=== PATIENT | female | born 1970 | race Caucasian/White ===

== ENCOUNTER 2021-03-04 18:01 | Inpatient (IN) | payer OTHER ==
[~2021-03-04] VITALS: Ht 162.6 cm; Wt 103.4 kg
[2021-03-04] VITALS (13 sets, daily range): BP systolic 106–127; BP diastolic 65–83
--- NOTE | 2021-03-04 18:04 | NUR ---
PT ARRIVED BY [facility] FLIGHT FROM [facility] IN [facility], TRANSFERRED FOR ANGIOEDEMA. PT REPORTED HAVING SWELLING ON LEFT LOWER LIP SINCE ABOUT 2PM TODAY, PT RECEIVED EPI, SOLUMDROL, AND BENADRYL CAREER DEVELOPMENT COORDINATOR. PT PLACED ON ALL MONITORS. VSS.
[2021-03-04] MEDS ORDERED: POLYETHYLENE GLYCOL 17 GM PACKET PO PRN (19:00)
[2021-03-04] MEDS ORDERED: BISACODYL 10 MG SUPP PR PRN (19:00)
[2021-03-04] MEDS ORDERED: LORazepam 2 MG/ML, 1ML IVPush PRN (19:00)
[2021-03-04] MEDS ORDERED: hydrALAzine 20 MG/ML, 1ML IVPush PRN (19:00)
[2021-03-04] MEDS ORDERED: ONDANSETRON 2MG/ML, 2ML IVPush PRN (19:00)
[2021-03-04] MEDS ORDERED: TEMAZEPAM 15 MG CAPSULE PO PRN (19:00)
[2021-03-04] MEDS ORDERED: MELATONIN 5 MG TABLET PO PRN (19:00)
[2021-03-04] MEDS ORDERED: ACETAMINOPHEN 325 MG TABLET PO PRN (19:00)
--- NOTE | 2021-03-04 19:08 | NUR ---
PER DR. ANDRADE PT TO BE STRICT NPO, AND PLACE ORDER FOR D5 NS TO INSFUSE AT 75ML/HR.
--- NOTE | 2021-03-04 19:17 | NUR ---
AWAITING FFP FROM BLOOD BANK.
[2021-03-04] MEDS ORDERED: D5%-0.9% NACL 1,000 ML IV SCH (19:30)
[2021-03-04] MEDS ORDERED: OXYB5TAB10 PO (19:45)
[2021-03-04] MEDS: D5%-0.9% NACL 1,000 ML IV SCH (19:45)
[2021-03-04] MEDS ORDERED: VENL37.511 PO (19:45)
[2021-03-04] MEDS ORDERED: ATOR10TA9 PO (19:45)
[2021-03-04] MEDS ORDERED: OMEP10CA5 PO (19:45)
[2021-03-04] MEDS ORDERED: CYCL10TA2 PO (19:45)
--- NOTE | 2021-03-04 19:48 | NUR ---
CALL TO DR. ANDRADE, PT C/O PAIN ON LEFT KNEE, PER DR. ANDRADE SHE WILL PLACE ORDER FOR PAIN MED IV.
[2021-03-04] MEDS ORDERED: MORPHINE SULFATE 4 MG/ML, 1ML ONE (19:52)
--- NOTE | 2021-03-04 19:56 | NUR ---
MEDICATED PER DEC FOR PAIN CONTROL.
[2021-03-04] MEDS ORDERED: MORPHINE SULFATE 4 MG/ML, 1ML IVPush PRN (20:00)
[2021-03-04] MEDS ORDERED: DIPHENHYDRAMINE 50 MG/ML, 1ML IV PRN (20:00)
--- NOTE | 2021-03-04 20:10 | NUR ---
REPORT TO EMMA DANIELSON.
[2021-03-04] MEDS ORDERED: FAMOTIDINE 20 MG TABLET PO SCH (21:00)
--- NOTE | 2021-03-04 23:29 | NUR ---
HARVINDER PERALES - Fall Risk Medication(s) present and receiving anticoagulants.
[2021-03-05] VITALS (10 sets, daily range): BP systolic 103–122; BP diastolic 57–80
[2021-03-05] MEDS: FAMOTIDINE 20 MG/2 ML IVPush SCH ×3 (00:44→21:08)
[2021-03-05] MEDS: MORPHINE SULFATE 4 MG/ML, 1ML IVPush PRN ×3 (00:45→10:22)
[2021-03-05 04:52] LABS: BASOPHILS % (AUTO) 0 % (0-1); EOSINOPHILS % (AUTO) 0 % (1-7); LYMPHOCYTES % (AUTO) 23 % (22-44); MEAN CORPUSCULAR HEMOGLOBIN 31.1 pg (27.0-34.8); MEAN CORPUSCULAR HGB CONC 33.9 g/dL (32.4-35.8); MEAN PLATELET VOLUME 7.4 fL (7.4-10.4); MONOCYTES % (AUTO) 4 % (2-9); NEUTROPHILS % (AUTO) 72 % (42-75); PLATELET COUNT 405 x10^3/uL (130-400); RED BLOOD COUNT 3.37 x10^6/uL (3.82-5.3)
[2021-03-05 04:58] LABS: MD NO
[2021-03-05 05:00] LABS: ANION GAP 7 mmol/L (5-15); CALCIUM 9.4 mg/dL (8.5-10.1); CHLORIDE 104 mmol/L (98-107)
[2021-03-05 05:02] LABS: CREATININE 0.61 mg/dL (0.55-1.02)
[2021-03-05] MEDS: ENOXAPARIN 40 MG/0.4 ML SQ SCH (08:20)
[2021-03-05] MEDS: D5%-0.9% NACL 1,000 ML IV SCH (10:11)
[2021-03-05] MEDS ORDERED: OMEPRAZOLE 20 MG CAPSULE.DR PO ONE (14:00)
[2021-03-05] MEDS: CYCLOBENZAPRINE 10 MG TABLET PO SCH ×2 (15:31→21:08)
[2021-03-05] MEDS: DOCUSATE 100 MG CAPSULE PO PRN ×2 (15:31→21:08)
[2021-03-05] MEDS ORDERED: HEMORRHOIDAL OINT, 28 GM (PREP H) RC PRN (16:00)
[2021-03-05] MEDS: ATORVASTATIN 10 MG TABLET PO SCH (21:08)
[2021-03-05] MEDS: OXYcodone IR 5MG TABLET PO PRN (21:08)
[2021-03-06] VITALS (10 sets, daily range): BP systolic 120–143; BP diastolic 77–89
[2021-03-06] MEDS ORDERED: methylPREDNISolone SOD SUCC 125 MG/2 ML IVPush ONE (02:00)
[2021-03-06] MEDS ORDERED: DIPHENHYDRAMINE 50 MG/ML, 1ML IVPush ONE ×2 (02:00→09:30)
[2021-03-06] MEDS ORDERED: FAMOTIDINE 20 MG/2 ML IVPush STA (02:18)
[2021-03-06] MEDS: MORPHINE SULFATE 4 MG/ML, 1ML IVPush PRN (04:38)
[2021-03-06] MEDS: OMEPRAZOLE 10 MG CAPSULE.DR PO SCH (06:00)
[2021-03-06] MEDS: ENOXAPARIN 40 MG/0.4 ML SQ SCH (09:00)
[2021-03-06] MEDS: OXYBUTYNIN CHLORIDE 5 MG TABLET PO SCH (09:16)
[2021-03-06] MEDS: FAMOTIDINE 20 MG/2 ML IVPush SCH ×2 (09:16→20:25)
[2021-03-06] MEDS: CYCLOBENZAPRINE 10 MG TABLET PO SCH ×3 (09:16→20:25)
[2021-03-06] MEDS: VENLAFAXINE XR 37.5MG CAP.ER.24H PO SCH (09:16)
--- NOTE | 2021-03-06 14:11 | NUR ---
CHOPPED/THIN - PHYSICIAN INTENSIVIST PLACED SWALLOW PRECAUTION SIGN AT HOB Addendum: 03/06/21 at 1412 by Virgie FAUST Amended: Links added.
[2021-03-06] MEDS: OXYcodone IR 5MG TABLET PO PRN (20:25)
[2021-03-06] MEDS: ATORVASTATIN 10 MG TABLET PO SCH (20:25)
[2021-03-07 01:22] VITALS: BP 126/75
[2021-03-07] MEDS: OMEPRAZOLE 10 MG CAPSULE.DR PO SCH (05:19)
[2021-03-07 07:01] VITALS: BP 122/78
[2021-03-07] MEDS ORDERED: HYDR-826 PO (07:39)
[2021-03-07] MEDS ORDERED: PRED20TA PO (07:39)
[2021-03-07] MEDS: ENOXAPARIN 40 MG/0.4 ML SQ SCH (08:09)
[2021-03-07] MEDS: OXYcodone IR 5MG TABLET PO PRN (08:09)
[2021-03-07] MEDS: OXYBUTYNIN CHLORIDE 5 MG TABLET PO SCH (08:09)
[2021-03-07] MEDS: FAMOTIDINE 20 MG/2 ML IVPush SCH (08:09)
[2021-03-07] MEDS: VENLAFAXINE XR 37.5MG CAP.ER.24H PO SCH (08:10)
[2021-03-07] MEDS: CYCLOBENZAPRINE 10 MG TABLET PO SCH (08:10)
[2021-03-07] MEDS ORDERED: DIPHENHYDRAMINE 25 MG CAPSULE ONE (12:18)
[2021-03-07] MEDS ORDERED: DIPHENHYDRAMINE 25 MG CAPSULE PO ONE (12:30)
== END 2021-03-07 15:10 | disposition home or self-care (01) | DRG 916 ==
LOC: ED 18:05 → EDIP 18:06 → ED 18:23 → 5SO 20:24 → DCLOUNGE 03-07 15:02
PROVIDERS: ADMIT Internal Medicine; ATTEND Family Medicine
PROC: 30233L1 Transfusion of Nonautologous Fresh Plasma into Peripheral Vein, Percutaneous Approach (ICD-10-PCS; principal; 2021-03-04)
DX: T78.3XXA Angioneurotic edema, initial encounter (principal); F41.9 Anxiety disorder, unspecified; F32.9 Major depressive disorder, single episode, unspecified; E78.5 Hyperlipidemia, unspecified; E66.9 Obesity, unspecified; W18.30XA Fall on same level, unspecified, initial encounter; G89.29 Other chronic pain; M25.569 Pain in unspecified knee; I10 Essential (primary) hypertension; Z90.49 Acquired absence of other specified parts of digestive tract; Z90.710 Acquired absence of both cervix and uterus; Z88.8 Allergy status to other drugs, medicaments and biological substances; Z79.899 Other long term (current) drug therapy; Z79.01 Long term (current) use of anticoagulants
CPT/HCPCS: 36415; 73564; 99285; J7042; 36430; 80048; 83735; 84100; 85025; 86850; 86900; 93005; G0378; J1650; J1200; J2270; J2930; J7512; P9017; Q0163